=== PATIENT | female | born 1960 | race Caucasian/White ===

== ENCOUNTER 2016-12-25 22:09 | Inpatient (IN) | payer BC ==
--- NOTE | ~2016-12-25 | OP ---
Record Of Operation [facility] [address] [place]. [address] NAME: LISA GALO DECEMBER : [birth year] STATUS : ADM IN PAT#: [id number] AGE: 56 ADM/REG DATE : 12/25/16 MR#: [id number] REPORT SERV DATE: 12/26/16 DICTATED BY: RICCO MENCHACA DATE: 12/26/16 REPORT STATUS : Draft TRANSCRIBED BY: ELIZABETH DATE: 12/26/16 DATE OF PROCEDURE: 12/26/2016 PREOPERATIVE DIAGNOSIS: [place] 2A acute left lower extremity ischemia. POSTOPERATIVE DIAGNOSIS: Sha 2A acute left lower extremity ischemia. PROCEDURE: 1. Aortogram with left lower extremity runoff. 2. Penumbra thrombectomy of the left popliteal artery. 3. Percutaneous angioplasty of the left popliteal artery using a 5 mm balloon and a 6 mm IN.PACT drug coated balloon. 4. Percutaneous angioplasty of the left tibioperoneal trunk with a 4 mm balloon. 5. Percutaneous angioplasty of the left anterior tibial artery using the 3 mm balloon. SANE RN: None. ANESTHESIA: General. ESTIMATED BLOOD LOSS: 100 mL. INDICATIONS: The patient is a diabetic patient with a history of obesity, who presented with a several-day history of left lower extremity pain. It was particularly worse today. She has had since symptoms of leg cramping when she walks that sounds like claudication. These symptoms are worse now and she presented to [facility] ER with a cold-pale left foot. A bedside Doppler evaluation revealed no signals in her left foot, so, she was consented for intervention. DESCRIPTION OF PROCEDURE: After informed consent was obtained, the patient was taken to the operating room, and placed in the supine position on the operating table. General anesthesia was administered. The patient's groins and left lower extremity were prepped and draped in usual sterile fashion. Ultrasound-guided access was obtained of the right common femoral artery using a micropuncture technique. An oblique angiogram confirmed puncture within the anterior common femoral artery. I passed a wire up into the aorta and placed a 5 Danish sheath. A UF catheter was placed into the perirenal aorta. An aortogram demonstrated no hemodynamically significant aortoiliac disease. I selected out the left external iliac artery and obtained sequential imaging down the left lower extremity. There was no hemodynamically significant left common femoral or deep femoral artery disease. The SFA was patent, but had a little bit of diseased distally. The popliteal artery was occluded. More distal runoff was not well visualized. I placed a catheter into the left SFA to obtain additional imaging. This demonstrated reconstitution of a collateral below- the-knee. More distal flow was not visualized. I administered additional heparin and placed a 7-Danish, 65 cm sheath up and over the aortic bifurcation into the left SFA. I crossed the popliteal artery occlusion and obtained an angiogram that demonstrated flow via the peroneal artery. There was a tibioperoneal trunk stenosis. The posterior tibial and anterior tibial artery. 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 I performed a number of Record Of Operation [facility] [id number] [place]. [address] NAME: LISA GALO DECEMBER : [birth year] STATUS : ADM IN PAT#: [id number] AGE: 56 ADM/REG DATE : 12/25/16 MR#: [id number] REPORT SERV DATE: 12/26/16 DICTATED BY: RICCO MENCHACA DATE: 12/26/16 REPORT STATUS : Draft TRANSCRIBED BY: ELIZABETH DATE: 12/26/16 thrombectomy of the left popliteal artery. Imaging obtained afterwards showed improvement, but there was an underlying stenosis in the popliteal artery and potentially in the distal SFA. I angioplastied this with a 5 mm balloon. While there was improvement, the balloon was undersized. I used a 6 x 150 mm 31Dovertronic IN.PACT drug coated balloon to angioplasty left popliteal artery. I went back and used that same balloon angioplasty a little bit more proximally in the distal SFA. I then angioplastied the left tibioperoneal trunk with a 4 mm balloon. There was a great result with this. There was no residual stenosis in the distal SFA, popliteal artery, or tibioperoneal trunk. I then placed a catheter in the left anterior tibial artery and obtained an angiogram that demonstrated that there was the anterior tibial artery occlusion and much of the anterior tibial artery was diseased. There was reconstitution of the distal anterior tibial artery. I crossed the anterior tibial artery occlusion and angioplastied the entire anterior tibial artery with the 3 mm balloon. Imaging obtained afterwards showed a great result. I then pulled my wire back and placed a catheter into the left popliteal artery. I injected 4 mg of alteplase into the popliteal artery. Imaging obtained afterwards showed improvement. There was a great Doppler signals in the foot. The foot looked more pink, although there were some dusky toes. I withdrew my wire, catheter and sheath and used a ProGlide device to close the arteriotomy. The patient tolerated the procedure well without any intraprocedural complications noted. TRANSFER TABLE OPERATOR/MODL Ricco Menchaca M.D. / [id number] CC: Ricco Menchaca M.D.
--- NOTE | ~2016-12-25 | DS ---
Discharge Summary [facility] [address] [place]. [address] NAME: LISA GALO DECEMBER : [birth year] STATUS : DIS IN PAT#: [id number] AGE: 56 ADM/REG DATE : 12/25/16 MR#: [id number] REPORT SERV DATE: 01/07/17 DICTATED BY: RICCO ANGEL DATE: 12/27/16 REPORT STATUS : Draft TRANSCRIBED BY: ELIZABETH DATE: 12/27/16 ADMISSION DATE: 12/25/2016 DISCHARGE DATE: 12/27/2016 REASON FOR ADMISSION: Acute left lower extremity ischemia. BRIEF HISTORY: The patient is a 56-year-old female with past medical history significant for diabetes and morbid obesity, who presented with a subacute history of left lower extremity ischemia. It sounds like she was started on antibiotics as an outpatient for toe pain. Her pain and cyanosis of her left foot worsen. She came in for evaluation and treatment. Here, she was noted to have no signals in her left foot. She underwent an angiogram with percutaneous thrombectomy of her left popliteal artery. I angioplastied the underlying stenosis and also treated an outflow occlusion of her anterior tibial artery. With this, we did inject some tPA into her vessels below the knee to improve the flow in any recently thrombosed vessels. With this, she had marked improvement in her pain, but she still had some cyanosis of her left 5th toe. During her hospitalization, she was noted to have supraventricular tachycardia. A Cardiology evaluation was obtained. Dr. Spence saw her and agreed with me starting her on a beta-acosta. Unfortunately, the patient did not want to continue her beta-acosta. This was, therefore, discontinued. I had started her on a statin, but discontinued it because of prior statin intolerance. I suggested that she look into red yeast rice as an alternative. She said that she would pursue this. By 12/27/2016, she was doing well. Her left 5th toe was still cyanotic, but she still had a palpable pulse in her foot. Her leg felt much better. I spent over an hour counseling her about the importance of exercise therapy and weight loss. I suggested a bariatric evaluation. We talked about the natural history of her disease process and the importance of blood sugar control. I discharged her on her routine home medications and daily aspirin. I have written a prescription for Plavix for a month. I initially started her on Xarelto, but discontinued this, as it was not clear that she had a cardiac source of embolus. 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 She is going to see Dr. Spence and his colleagues in followup for her aortic stenosis. This was noted on echocardiogram. She is going to follow up with me in four to six weeks with a duplex. I recommend that she establish care with a news commentator, but she said that she is moving to [place]. She can establish care there. DICTATED BY: Steven Clark/ELIZABETH Ricco Angel M.D. / [id number] Discharge Summary [address] [address] NAME: LISA GALO DECEMBER : [birth year] STATUS : DIS IN PAT#: [id number] AGE: 56 ADM/REG DATE : 12/25/16 MR#: [id number] REPORT SERV DATE: 01/07/17 DICTATED BY: RICCO ANGEL DATE: 12/27/16 REPORT STATUS : Draft TRANSCRIBED BY: ELIZABETH DATE: 12/27/16 CC: Steven Clark ALEX OLEG
--- NOTE | ~2016-12-25 | CN ---
Consultation Report [facility] [address] [place]. [address] NAME: LISA FRYE DECEMBER : 58 STATUS : ADM IN [facility] WITH [facility]#: [id number] AGE: 56 ADM/REG DATE : 12/25/16 MR#: [id number] REPORT SERV DATE: 12/26/16 DICTATED BY: DIMITRY SPENCE DATE: 12/26/16 REPORT STATUS : Draft TRANSCRIBED BY: MODL DATE: 12/26/16 CARDIOLOGY CONSULTATION DATE OF CONSULTATION: 12/26/2016 INDICATION: Tachycardia. HISTORY OF PRESENT ILLNESS: Lisa Frye is a 56-year-old female, who was transferred to [facility] from the [facility] yesterday, and she has a past medical history of diabetes and hypertension. She had developed left foot pain mainly along the toes over the last couple of days. She was given some antibiotics for question of possible infection. The foot became painful and cold. The symptoms waxed and waned. She presented to [facility] and was found to have no pulse. She was transferred to [facility] for evaluation. She was seen by Dr. Angel and was taken to the Vascular Surgery. Overnight, she did have some tachycardia and increased heart rates. On a view of the recording, they appeared to be sinus tachycardia. PAST MEDICAL HISTORY: Hypertension, diabetes, thyroiditis, asthma, possible [place], possible LICEA, migraines, reflux, diverticular disease, and dysphagia. SOCIAL HISTORY: No smoking, no tobacco. . FAMILY HISTORY: Reviewed and noncontributory. ALLERGIES: NONE KNOWN. HOME MEDICATIONS: Listed in [facility] medication form and reviewed. PHYSICAL EXAMINATION: VITAL SIGNS: Blood pressure 109/57, pulse 91, respiratory rate is 18. GENERAL: Appears stated age, no distress. EYES: Sclerae anicteric, no arcus senilis. MOUTH: Oral mucosa moist, lips acyanotic. NECK: Jugular venous pressure normal, no carotid bruits. LUNGS: Clear to auscultation bilaterally, normal inspiratory effort. CARDIAC: Irregular tachycardic rhythm. ABDOMEN: Soft, nondistended, nontender. EXTREMITIES: Left foot demonstrates some discoloration of the toes. SKIN: Warm and dry. NEURO/PSYCH: Alert and oriented, nonfocal, mood appropriate. LABORATORY AND DIAGNOSTIC STUDIES: Electrocardiogram is sinus tachycardia. Sodium 134, potassium 4.2, creatinine 1.05, glucose 307, magnesium 1.7. Hemoglobin 12.3, platelets 226, white count 7.3. Consultation Report [facility] [address] [place]. [address] NAME: LISA FRYE DECEMBER : [birth year] STATUS : ADM IN PAT#: [id number] AGE: 56 ADM/REG DATE : 12/25/16 MR#: [id number] REPORT SERV DATE: 12/26/16 DICTATED BY: DIMITRY SPENCE DATE: 12/26/16 REPORT STATUS : Draft TRANSCRIBED BY: ELIZABETH DATE: 12/26/16 IMPRESSIONS: 1. Tachycardia, appears to be sinus tachycardia. 2. Left lower extremity ischemia, question embolic source. We will obtain echocardiogram. I agree with metoprolol. Obtain echocardiogram. We will follow up rhythm in a.m. JESSE/ELIZABETH Dimitry Spence M.D. / [id number] CC: Ricco Angel M.D. UNKNOWN
--- NOTE | ~2016-12-25 | PREOPHP ---
PreOp History and Physical [facility] [address] [place]. [address] NAME: LISA GALO DECEMBER : [birth year] STATUS : ADM IN PAT#: [id number] AGE: 56 ADM/REG DATE : 12/25/16 MR#: [id number] REPORT SERV DATE: 12/26/16 DICTATED BY: RICCO ANGEL DATE: 12/25/16 REPORT STATUS : Draft TRANSCRIBED BY: ELIZABETH DATE: 12/25/16 REASON FOR ADMISSION: Acute left lower extremity ischemia. BRIEF HISTORY: The patient is a 56-year-old female with a past medical history significant for diabetes and hypertension who is a patient of Dr. Ferdinand Henriquez. She developed a left foot pain primarily in her toes along with a purplish discoloration just a couple of days ago. She went in to see her primary care physician, and received some antibiotics for suspected infection. This morning, she woke up with a painful cold left leg. It has intermittently gotten better and worse. She went in to [facility] ER and was found to have a pale cold left foot with no signals. I was consulted for evaluation and the patient was transferred over to the [facility] for my evaluation and treatment. The patient complains of the aforementioned symptoms. She has had some intermittent cramping in her calves for which she was receiving workup. The etiology was unclear, but she said that her legs would get worse with walking. Her symptoms were primarily on the right side, but also occurred on the left. Her symptoms are different now than they were in the past. She cannot say exactly when her symptoms started with regard to this new left foot and leg pain. Having said that, she seems to think that there are some symptoms that started a few days ago, but more acutely things changed this morning. She denies anything that sounds like chest pain or shortness of breath. She occasionally says that her heart races. She does not feel like her heart is racing now. She says that she has a high thrombocyte count and has a tendency to clot, but does not take medicine for this and does not know of a true diagnosis for this. PAST MEDICAL HISTORY: Hypertension, diabetes, thyroiditis, asthma, some question of obstructive sleep apnea, early LICEA, migraine headaches, gastroesophageal reflux disease, dysphagia, diverticular disease. PAST SURGICAL HISTORY: Right knee replacement. She has also documented to have had nose surgery, cholecystectomy. FAMILY HISTORY: Noncontributory. SOCIAL HISTORY: She denies tobacco, alcohol, or drug use. She is and her is reportedly on his way from [facility]. MEDICATIONS: Documented on the chart and were reviewed. ALLERGIES: NONE. REVIEW OF SYSTEMS: A complete review of systems was performed and is negative with the exception of the aforementioned findings. PHYSICAL EXAMINATION: VITAL SIGNS: Documented on the chart and were reviewed. GENERAL: The patient is awake, alert, oriented. In no apparent distress. Her head and neck examination is benign without any carotid bruits. PreOp History and Physical [address] [address] NAME: LISA GALO DECEMBER : [birth year] STATUS : ADM IN [facility]#: [id number] AGE: 56 ADM/REG DATE : 12/25/16 MR#: [id number] REPORT SERV DATE: 12/26/16 DICTATED BY: RICCO ANGEL DATE: 12/25/16 REPORT STATUS : Draft TRANSCRIBED BY: ELIZABETH DATE: 12/25/16 HEART: Tachycardic. LUNGS: Clear. ABDOMEN: Soft, nontender, nondistended, but overweight. She has a normal complement of upper extremity pulses without any significant edema or ischemic ulcerations. She has palpable femoral pulses. I do not appreciate left popliteal or pedal pulses. She has no signals in her left foot. Her left foot is cold and pale. She is able to move her toes, but they are numb. On the right, I think I can feel a weak popliteal pulse, but I do not feel pedal pulses. She does have signals in her right foot. Her right foot is pink and warm. NEUROLOGICAL: Grossly nonfocal. MUSCULOSKELETAL: Otherwise benign. LABORATORY DATA: Her laboratory investigations are fairly unremarkable. ASSESSMENT AND PLAN: It looks like this lady has acute or subacute left lower extremity ischemia. I suspect that she has had a thromboembolic issue. I talked to her about the risks, benefits, and alternatives of angiography with intervention. We talked about open thrombectomy, thrombolysis, and the risks associated with these. She understands her relative high risk of limb loss if this is left untreated. She wishes to proceed. She understands that this may be a staged procedure. KIA/MODL Ricco Angel M.D. / [id number] CC: Ricco Angel M.D.
[~2016-12-25 22:09] MED LIST: B12100T PO; BACDS PO; BYETTA10 SC; COZAAR100 MG PO; DUAVEE PO; FORTAMET500 MG PO; FROVA2.5 MG PO; GLUCCHONDR PO; GLUMETZA500 MG PO; HYZAAR 50/12.51 TAB PO; LEVEMIR SC; MAX25 PO; NOVOLOG SC; NOVOPEN SC; PRILO PO; PROZ10 PO; PVC V; VITAMIN D1000 UNI1 PO; VITAMIN D31000 UNIT PO; VITE1000 PO; XYZAL5 MG PO
[2016-12-26 04:09] LABS: BASOPHILS 0.1 %; BASOPHILS ABSOLUTE 0.01 10/3/uL (0.0-0.16); EOSINOPHILS 0 %; HEMATOCRIT 38.3 % (36.0-48.0); HEMOGLOBIN 12.3 g/dL (12.0-16.0); IMMATURE GRANULOCYTES 0.7 %; IMMATURE GRANULOCYTES ABSOLUTE 0.05 10/3/uL (0.0-0.11); LYMPHOCYTES 2.5 %; LYMPHOCYTES ABSOLUTE 0.18 10/3/uL (0.67-4.30); MEAN CORPUS HGB CONC 32.1 g/dL (32.0-36.0); MEAN CORPUSCULAR HEMOGLOB 25.5 pg (26.0-34.0); MEAN CORPUSCULAR VOLUME 79.5 fL (80-100); MONOCYTES 0.7 %; MONOCYTES ABSOLUTE 0.05 10/3/uL (0.21-1.20); NEUTROPHILS ABSOLUTE 6.96 10/3/uL (2.02-8.40); PLATELET COUNT 226 10/3/uL (150-400); RED CELL COUNT 4.82 10/6/uL (4.0-5.6); WHITE BLOOD CELLS 7.3 10/3/uL (4.5-10.5)
[2016-12-26 04:10] LABS: MANUAL DIFF NO %
[2016-12-26 04:13] LABS: INTERNATIONAL NORMAL RATI 1.1 UNITS (-); PARTIAL THROMBO TIME 48.4 SEC (22.5-37.2); PROTIME (NOT ORD) 13.8 SEC (12.0-14.5)
[2016-12-26 04:23] LABS: BUN (BLOOD UREA NITROGEN) 12 MG/DL (6-23); CALCIUM, SERUM 8.1 MG/DL (8.5-10.4); CHLORIDE, SERUM 102 MMOL/L (96-112); CO2 (CARBON DIOXIDE) 23 MMOL/L (24-34); CREATININE 1.05 MG/DL (0.55-1.02); GFR AFRICAN AMERICAN 68 ML/MIN (>=60); GFR NON AFRICAN AMERICAN 59 ML/MIN (>=60); GLUCOSE, SERUM 307 MG/DL (60-99); POTASSIUM, SERUM 4.2 MMOL/L (3.5-5.3); SODIUM, SERUM 134 MMOL/L (135-148)
[2016-12-26 19:08] LABS: CALCIUM, SERUM 8.5 MG/DL (8.5-10.4); CHLORIDE, SERUM 102 MMOL/L (96-112); CO2 (CARBON DIOXIDE) 25 MMOL/L (24-34); CREATININE 1.05 MG/DL (0.55-1.02); GFR AFRICAN AMERICAN 68 ML/MIN (>=60); GFR NON AFRICAN AMERICAN 59 ML/MIN (>=60); GLUCOSE, SERUM 252 MG/DL (60-99); POTASSIUM, SERUM 4.4 MMOL/L (3.5-5.3); SODIUM, SERUM 135 MMOL/L (135-148)
[2016-12-26 19:09] LABS: BUN (BLOOD UREA NITROGEN) 18 MG/DL (6-23)
[2016-12-27] MEDS ORDERED: PLAVIX PO (16:28)
[2016-12-27] MEDS ORDERED: NORCO1 TA1 PO (16:29)
[2016-12-27] MEDS ORDERED: ASAB PO (16:33)
== END 2016-12-27 17:00 | disposition home or self-care (01) | DRG 271 ==
LOC: SDC/OF 22:09 → CVICU 23:20 → 2SO 12-27 10:06
PROVIDERS: Surgery
PROC: 047N3ZZ Dilation of Left Popliteal Artery, Percutaneous Approach (ICD-10-PCS; 2016-12-25)
PROC: 047Q3ZZ Dilation of Left Anterior Tibial Artery, Percutaneous Approach (ICD-10-PCS; 2016-12-25)
PROC: B41D1ZZ Fluoroscopy of Aorta and Bilateral Lower Extremity Arteries using Low Osmolar Contrast (ICD-10-PCS; principal; 2016-12-25 23:00)
PROC: 04CN3ZZ Extirpation of Matter from Left Popliteal Artery, Percutaneous Approach (ICD-10-PCS; 2016-12-25 23:00)
PROC: 047N3Z1 Dilation of Left Popliteal Artery using Drug-Coated Balloon, Percutaneous Approach (ICD-10-PCS; 2016-12-25 23:00)
PROC: [UNRECOGNIZED PROCEDURE] (2016-12-25 23:00)
DX: I82.432 Acute embolism and thrombosis of left popliteal vein (principal); I47.1 Supraventricular tachycardia; K75.81 Nonalcoholic steatohepatitis (NASH); I10 Essential (primary) hypertension; E11.51 Type 2 diabetes mellitus with diabetic peripheral angiopathy without gangrene; J45.909 Unspecified asthma, uncomplicated; G47.33 Obstructive sleep apnea (adult) (pediatric); I35.0 Nonrheumatic aortic (valve) stenosis; G43.909 Migraine, unspecified, not intractable, without status migrainosus; K21.9 Gastro-esophageal reflux disease without esophagitis; R13.10 Dysphagia, unspecified; K57.90 Diverticulosis of intestine, part unspecified, without perforation or abscess without bleeding; E66.9 Obesity, unspecified; E06.9 Thyroiditis, unspecified; Z96.651 Presence of right artificial knee joint; Z98.890 Other specified postprocedural states
CPT/HCPCS: 36415; 37184; 37224; 37228; 75625; 75710; 75774; 80048; 82962; 83735; 85025; 85610; 85730; 86850; 86900; 86901; 93005; 97161-GP; A9270-GY; C1725; C1750; C1760; C1769; C1894; C8929; J0330; J0690; J2250; J2370; J2405; J2710; J2997; J3010; Q9957; Q9967